=== PATIENT | female | born 1950 | race Caucasian/White ===

== ENCOUNTER 2020-06-04 07:03 | Day surgery (SDC) | payer BC ==
[~2020-06-04] VITALS: Ht 177.8 cm; Wt 65.0 kg
[2020-06-04] MEDS ORDERED: FENTANYL PF 100 MCG/2ML ONE (08:46)
[2020-06-04] MEDS ORDERED: MIDAZOLAM 1 MG/ML, 2ML ONE (08:46)
[2020-06-04] MEDS ORDERED: CHLORHEXIDINE 15 ML UDC MM ONE (09:00)
[2020-06-04] MEDS ORDERED: LACTATED RINGERS 1,000 ML IV SCH (09:00)
[2020-06-04] MEDS ORDERED: NONE PER PT (09:15)
[2020-06-04 09:29] VITALS: BP 119/75
[2020-06-04] MEDS ORDERED: ACETAMINOPHEN 325 MG TABLET PO PRN (09:30)
[2020-06-04] MEDS ORDERED: PROMETHAZINE 25 MG/ML, 1ML IVPush PRN (09:30)
[2020-06-04] MEDS ORDERED: LABETALOL 5MG/ML, 20ML IV PRN (09:30)
[2020-06-04] MEDS ORDERED: FENTANYL PF 100 MCG/2ML IV PRN (09:30)
[2020-06-04] MEDS ORDERED: OXYcodone 5 MG/5 ML ORAL.SOL UDC PO PRN (09:30)
[2020-06-04] MEDS ORDERED: HYDROmorphone 1 MG/ML, 1ML INJ IVPush PRN (09:30)
[2020-06-04] MEDS ORDERED: MIDAZOLAM 1 MG/ML, 2ML IV PRN (09:30)
[2020-06-04] MEDS ORDERED: BUPIVACAINE/PF 0.5% ONE (10:06)
[2020-06-04] MEDS ORDERED: methylPREDNISolone *ACETATE* 40 MG/ML ONE (10:06)
[2020-06-04] MEDS ORDERED: KETOROLAC 30 MG/1 ML ONE (10:12)
[2020-06-04] MEDS ORDERED: PROPOFOL 10 MG/ML, 20ML ONE (10:12)
[2020-06-04] MEDS ORDERED: ONDANSETRON 2MG/ML, 2ML ONE (10:12)
[2020-06-04] MEDS ORDERED: DEXAMETHASONE 4 MG/ML, 1ML ONE (10:12)
[2020-06-04] MEDS ORDERED: EPHEDRINE 50 MG/ML, 1ML ONE (11:03)
[2020-06-04] MEDS ORDERED: EPHEDRINE 50 MG/ML, 1ML IVPush PRN (11:30)
== END 2020-06-04 11:50 | disposition home or self-care (01) ==
LOC: OUT 07:03
PROVIDERS: ATTEND Orthopaedic Surgery
DX: M25.661 Stiffness of right knee, not elsewhere classified (principal); Z20.828 Contact with and (suspected) exposure to other viral communicable diseases; G89.18 Other acute postprocedural pain; Z79.899 Other long term (current) drug therapy; Z87.81 Personal history of (healed) traumatic fracture
CPT/HCPCS: 27570; 64447; 87635; 93005; J1100; J1885; J2250; J2405; J2704; J3010; J7120; J1030